=== PATIENT | male | born 1975 | race Caucasian/White ===

== ENCOUNTER 2022-09-07 15:14 | Outpatient (CLI) | payer MEDICAID, SELFPAY ==
--- NOTE | 2022-09-07 15:32 | XRR_ITS ---
PROCEDURE INFORMATION: Exam: XR Lumbosacral Spine Exam date and time: 09/07/2022 3:40 PM Age: 46 years old Clinical indication: Low back pain; Additional info: Vertebrogenic low back pain, comment on presence or absence of spinal instability TECHNIQUE: Imaging protocol: Radiologic exam of the lumbosacral spine. Views: 2 or 3 views. Lateral neutral, flexion and extension views. COMPARISON: No relevant prior studies available. FINDINGS: Bones/joints: No radiographically evident fracture on the lateral neutral view. 0.2 cm retrolisthesis of L2 on L3. 0.1 cm retrolisthesis of L3 on L4. Severe L5-S1 disc space narrowing is seen with vacuum phenomenon, consistent with degenerative disc disease change. Moderate to severe degenerative facet disease changes are seen at the L3-L4 through L5-S1 levels. The lateral flexion and extension views show limited flexion and extension performed by the patient. There is unchanged retrolisthesis of L2 on L3 and L3 on L4. Soft tissues: Paraspinal soft tissues are unremarkable. Notes: If there is further concern or neurological abnormalities on clinical exam, CT or MRI of the lumbar spine may be performed for complete assessment. XR/XR lumbar spine f/e only [id number] IMPRESSION: Degenerative changes of the lumbar spine, as noted above. No definite abnormal motion seen on the limited flexion and extension view radiographs.
== END 2022-09-07 15:15 | disposition home or self-care (01) ==
PROVIDERS: PCP Internal Medicine Medical Oncology; Visit Provider Nurse Practitioner
DX: M51.37 Other intervertebral disc degeneration, lumbosacral region (principal); M47.817 Spondylosis without myelopathy or radiculopathy, lumbosacral region; M48.07 Spinal stenosis, lumbosacral region; M54.51 Vertebrogenic low back pain
CPT/HCPCS: 72120

== ENCOUNTER 2022-12-17 12:49 | Outpatient (CLI) | payer BC, MEDICAID, SELFPAY ==
--- NOTE | 2022-12-17 12:56 | MR_ITS ---
WS: [id number] MRI LUMBAR SPINE NONCONTRAST TECHNIQUE: Sagittal T1, T2 and STIR imaging. Axial T1 and T2 imaging. CLINICAL INFORMATION: VERTEBROGENIC LOW BACK PAIN COMPARISON: None. FINDINGS: Mild lumbar curve. Slight retrolisthesis L2 on L3. L1-L2: Normal. L2-L3: Slight retrolisthesis. Mild annular bulging. Narrowing of the LEFT subarticular recess. Mild f acet arthropathy. Mild LEFT greater than RIGHT foraminal narrowing. L3-L4: Mild annular bulging. Slight effacement of the ventral thecal sac. Mild LEFT foraminal narrowi ng with a small LEFT foraminal protrusion. Mild facet arthropathy. Spinal canal and RIGHT foramen are patent. L4-L5: Mild annular bulging. Tiny annular fissure. Slight impingement on the LEFT subarticular recess and traversing LEFT L5 nerve root. LEFT foraminal protrusion with mild LEFT foraminal narrowing. Con tact of the exiting LEFT L4 nerve root. RIGHT foramen is patent. Moderate facet arthropathy. L5-S1: Mild disc bulging with osteophytic ridging. Mild bilateral foraminal narrowing. Mild facet art hropathy. Visualized pelvic bony structures: Normal. Paravertebral soft tissues: Normal. IMPRESSION: 1. Mild annular bulging L2-3 with slight impingement LEFT subarticular recess and mild LEFT greater than RIGHT foraminal narrowing with small foraminal protrusions. 2. Small LEFT foraminal protrusion with mild LEFT L3-4 foraminal narrowing. 3. LEFT foraminal protrusion L4-5 with an annular fissure and impingement exiting LEFT L4 nerve root . Impingement traversing LEFT L5 nerve root. 4. Mild bilateral L5-S1 foraminal narrowing. 5. Mild to moderate facet arthropathy L3-L5.
== END 2022-12-17 12:50 | disposition home or self-care (01) ==
LOC: RAD 12:51
PROVIDERS: PCP Internal Medicine Medical Oncology; Visit Provider Nurse Practitioner
DX: M54.51 Vertebrogenic low back pain (principal); M51.36 Other intervertebral disc degeneration, lumbar region
CPT/HCPCS: 72148

== ENCOUNTER → 2024-05-16 15:14 | Outpatient (BNVA) | payer BC, MEDICAID, SELFPAY | PROVIDERS: Visit Provider Orthopaedic Surgery | DX: Z01.818 Encounter for other preprocedural examination (principal); M54.9 Dorsalgia, unspecified; M54.2 Cervicalgia; M25.551 Pain in right hip | CPT/HCPCS: 36415; 72050; 72110; 73502; 80053; 81001; 85025 ==

== ENCOUNTER → 2024-06-02 09:45 | Outpatient (BNVA) | payer BC, MEDICAID, SELFPAY | PROVIDERS: Visit Provider Family Medicine | DX: Z01.818 Encounter for other preprocedural examination (principal) | CPT/HCPCS: 93005 ==

== ENCOUNTER 2024-06-28 09:17 | Outpatient (CLI) | payer BC, MEDICAID, SELFPAY ==
--- NOTE | 2024-06-28 09:20 | MR_ITS ---
WS: [id number] MRI CERVICAL SPINE NONCONTRAST HISTORY: Neck Pain COMPARISON: None available. Technique: Multiplanar, multisequence noncontrast imaging of the cervical spine. Normal cervical alignment. Disc spaces are mildly narrowed throughout. Greatest disc base narrowing and desiccation at C5-6. Small hypertrophic osteophytes throughout the cervical spine. Signal within the cervical cord is normal. Visualized posterior fossa is unremarkable. Craniocervical junction, C1 and C2 relationship, odontoid process and soft tissues are normal. C2-C3: No central stenosis. Mild LEFT foraminal stenosis due to osteophyte. C3-C4: Mild annular disc bulging and mild bilateral facet arthritis. Very mild foraminal stenosis. C4-C5: Mild osteophytic ridging with annular disc bulging encroaching upon the ventral thecal sac. Mild central and bilateral foraminal stenosis. Mild bilateral facet arthritis. C5-C6: Mild osteophytic ridging with annular disc bulging and foraminal osteophytes. Mild central and bilateral foraminal stenosis which is moderate. Mild facet arthritis. C6-C7: Mild osteophytic ridging with annular disc bulging. Very mild narrowing of the central canal. Mild RIGHT and moderate LEFT foraminal stenosis. C7-T1: Normal. Paraspinal soft tissue are normal. MR/MR cervical spin wo con* [id number] IMPRESSION: 1. No high-grade central stenosis. 2. C5-6: Moderate bilateral foraminal stenosis due to disc osteophyte disease. Mild central stenosis. 3. C6-7: Moderate LEFT foraminal stenosis with mild RIGHT foraminal stenosis. 4. C2-3: Mild LEFT foraminal stenosis. 5. C3-4: Minimal foraminal stenosis. 6. C4-5: Mild annular disc bulging and facet arthritis resulting in mild centr al and bilateral foraminal stenosis.
== END 2024-06-28 09:18 | disposition home or self-care (01) ==
PROVIDERS: Visit Provider Family Medicine
DX: M48.02 Spinal stenosis, cervical region (principal); M25.78 Osteophyte, vertebrae; M50.321 Other cervical disc degeneration at C4-C5 level; M47.892 Other spondylosis, cervical region; M50.31 Other cervical disc degeneration, high cervical region; M50.322 Other cervical disc degeneration at C5-C6 level; M50.323 Other cervical disc degeneration at C6-C7 level
CPT/HCPCS: 72141

== ENCOUNTER 2024-07-07 14:15 | Outpatient (CLI) | payer BC, MEDICAID, SELFPAY ==
--- NOTE | 2024-07-07 14:30 | MR_ITS ---
WS: [id number] MRI LUMBAR SPINE NONCONTRAST TECHNIQUE: Sagittal T1, T2 and STIR imaging. Axial T1 and T2 imaging. CLINICAL INFORMATION: lumbar pain COMPARISON: 12/17/2022 FINDINGS: Mild lumbar curve. No acute compression. Slight retrolisthesis L2 on L3. Disc space narrowing worse at L5-S1. L1-L2: Mild facet arthropathy. Spinal canal and foramina are patent. L2-L3: Slight retrolisthesis. Disc bulging with significant impingement of the LEFT subarticular recess and traversing LEFT L3 nerve root. Mild facet arthropathy. Small annular fissure. LEFT foraminal protrusion with mild LEFT foraminal narrowing. L3-L4: Mild annular bulging. Impingement on the LEFT subarticular recess and traversing LEFT L4 nerve root. LEFT foraminal protrusion with mild LEFT foraminal narrowing. Small annular fissure at this level. Mild facet arthropathy. L4-L5: Mild annular bulging. Impingement on the LEFT subarticular recess. Small annular fissure eccentric to the LEFT with a LEFT foraminal protrusion. Slight impingement on the exited L4 nerve root. L5-S1: Mild disc bulging with osteophytic ridging. Spinal canal is patent. Mild bilateral bony foraminal narrowing similar to previous. Moderate facet arthropathy. Visualized pelvic bony structures: Normal. Paravertebral soft tissues: Normal. MR/MR lumbar spine wo con* [id number] IMPRESSION: 1. Significant impingement on the LEFT subarticular recess L2-L3 and L3-L4 yadira ears progressed compared to previous 2. LEFT foraminal protrusions L2-3 and L3-4 with small annular tears. Impinge ment on the exiting LEFT L2 and LEFT L3 nerve roots respectively. 3. Disc bulging L4-5 impinges the LEFT subarticular recess and traversing LEFT L5 nerve root. LEFT foraminal protrusion slightly impinges the exiting L4 nerv e root with a small annular tear. This is similar to previous. 4. Mild bilateral bony foraminal narrowing L5-S1.
== END 2024-07-07 14:16 | disposition home or self-care (01) ==
PROVIDERS: PCP Nurse Practitioner Family; Visit Provider Orthopaedic Surgery
DX: M48.062 Spinal stenosis, lumbar region with neurogenic claudication (principal); M79.604 Pain in right leg; M79.605 Pain in left leg; M51.369 Other intervertebral disc degeneration, lumbar region without mention of lumbar back pain or lower extremity pain; M51.26 Other intervertebral disc displacement, lumbar region; R93.7 Abnormal findings on diagnostic imaging of other parts of musculoskeletal system; M43.8X6 Other specified deforming dorsopathies, lumbar region; M99.63 Osseous and subluxation stenosis of intervertebral foramina of lumbar region; M47.896 Other spondylosis, lumbar region; M51.A1 Intervertebral annulus fibrosus defect, small, lumbar region; M51.379 Other intervertebral disc degeneration, lumbosacral region without mention of lumbar back pain or lower extremity pain; M47.897 Other spondylosis, lumbosacral region
CPT/HCPCS: 72148

== ENCOUNTER 2024-08-16 08:28 | Day surgery (SDC) | payer BC, MEDICAID, SELFPAY ==
[2024-08-16] VITALS (9 sets, daily range): BP systolic 95–162; BP diastolic 62–98; PULSE 63–99; RESP 16–18; TEMP 36.2–36.8; O2SAT 95–100; BMI 21.9
[2024-08-16] MEDS: sodium chloride 0.9% 1,000 ML 30 ML IV (09:12)
--- NOTE | 2024-08-16 10:26 | ANES.PREANE2 ---
Pre-Anesthetic Assessment Height/Weight: Height 1.8 m Weight 71.214 kg Temp Pulse Resp BP Pulse Ox O2 Del Method 98.2 F 63 18 134/83 99 Room Air 08/16/24 08:46 08/16/24 08:46 08/16/24 08:46 08/16/24 08:46 08/16/24 08:46 08/16/24 08:54 Preop Diagnosis: Lumbar stenosis neurogenic claudication Operation Date: 08/16/24 10:20 Proposed Procedures p Lumbar Decompression(Not Applicable) - Donnell Ram DO Familial anesthetic complications: Bradycardia in 1994 when given that thing that reverses the anesthesia. probable bradycardia d/t neostigmine reversal Was Beta Brian taken within 24 hours: N/A Was Clonidine taken within 24 hours: N/A Last intake: Intake Last Liquid Date 08/15/24 Last Liquid Time 21:00 Last Solid Date 08/15/24 Last Solid Time 21:00 Social No alcohol and No tobacco Exam alert, oriented x 3, clear to auscultation bilaterally and regular rate & rhythm Airway Mallampati: Class I Dentition: full GI Gastroesophageal Reflux Disease Anesthetic Plan ASA status: 2 Anesthesia: General Risk of > 500 ml blood loss (7ml/kg in children): No Medications/Allergies Home Medications ?Medication ?Instructions ?Recorded ?Confirmed ?Last Taken ?Type acetaminophen 500 mg tablet 500 mg PO Q6H PRN Pain 05/16/24 08/15/24 08/15/24 History (Tylenol Extra Strength) methotrexate sodium 2.5 mg tablet 2.5 mg PO DAILY 05/16/24 08/15/24 08/11/24 History omeprazole 20 mg capsule,delayed 20 mg PO DAILY 05/16/24 08/15/24 08/14/24 History release phentermine 37.5 mg tablet 18.75 mg PO DAILY 05/16/24 08/15/24 08/02/24 History pregabalin 150 mg capsule 150 mg PO BID 05/16/24 08/15/24 08/16/24 History tramadol 50 mg tablet 50 mg PO Q4H PRN Pain 05/16/24 08/15/24 08/16/24 History anastrozole 1 mg tablet 0.5 mg PO .TWICEWEEKLY 08/15/24 08/15/24 08/03/24 History sertraline 50 mg tablet 50 mg PO DAILY 08/15/24 08/15/24 08/15/24 History testosterone cypionate 200 mg/mL 200 mg IM .[id number] 08/15/24 08/15/24 08/03/24 History intramuscular oil Allergies Allergy/AdvReac Type Severity Reaction Status Date / Time pantoprazole Allergy Intermediate hives Verified 07/25/24 11:14 Current Medications Generic Name Dose Route Start Last Admin Trade Name Freq PRN Reason Stop Dose Admin Sodium Chloride 1,000 mls @ 30 mls/hr 08/16/24 08:45 08/16/24 09:12 Sodium Chloride 0.9% IV 08/17/24 08:44 30 mls/hr .Q24H RICHARD Administration PFSH Anesthesia Social History Smoking and tobacco/nicotine status: never used tobacco/nicotine
[2024-08-16] MEDS: midazolam 1 mg/mL INJ 2 mL 2 MG IVP (11:02)
--- NOTE | 2024-08-16 12:06 | W.PM.OPSFHP ---
Same Day Surgery H&P Indication for Procedure/HPI DATE OF PROCEDURE: August 16, 2024 CHIEF COMPLAINT/INDICATIONFOR SURGICAL PROCEDURE: Back and right leg pain PREOP DIAGNOSIS: Lumbar stenosis neurogenic claudication PLANNED PROCEDURE: Operation Date: 08/16/24 10:20 Proposed Procedures p Lumbar Decompression(Not Applicable) - Donnell Ram, DO Medications/Allergies* Home Medications ?Medication ?Instructions ?Recorded ?Confirmed ?Type acetaminophen 500 mg tablet 500 mg PO Q6H PRN Pain 05/16/24 08/15/24 History (Tylenol Extra Strength) methotrexate sodium 2.5 mg tablet 2.5 mg PO DAILY 05/16/24 08/15/24 History omeprazole 20 mg capsule,delayed 20 mg PO DAILY 05/16/24 08/15/24 History release phentermine 37.5 mg tablet 18.75 mg PO DAILY 05/16/24 08/15/24 History pregabalin 150 mg capsule 150 mg PO BID 05/16/24 08/15/24 History tramadol 50 mg tablet 50 mg PO Q4H PRN Pain 05/16/24 08/15/24 History anastrozole 1 mg tablet 0.5 mg PO .TWICEWEEKLY 08/15/24 08/15/24 History sertraline 50 mg tablet 50 mg PO DAILY 08/15/24 08/15/24 History testosterone cypionate 200 mg/mL 200 mg IM .[id number] 08/15/24 08/15/24 History intramuscular oil Allergies/Adverse Reactions Allergy/AdvReac Type Severity Reaction Status Date / Time pantoprazole Allergy Intermediate hives Verified 07/25/24 11:14 Current Medications: Generic Name Dose Route Start Last Admin Trade Name Freq PRN Reason Stop Dose Admin Sodium Chloride 1,000 mls @ 30 mls/hr 08/16/24 08:45 08/16/24 09:12 Sodium Chloride 0.9% IV 08/17/24 08:44 30 mls/hr .Q24H RICHARD Administration Midazolam HCl 2 mg 08/16/24 08:34 08/16/24 11:02 Midazolam 1 Mg/Ml Inj 2 Ml IVP 2 mg Q5M PRN Administration Preop Anxiety Pertinent History/Comorbid Conditions* Social History Smoking and tobacco/nicotine status: never used tobacco/nicotine Pertinent Exam Findings alert, oriented x 3 and procedure specific exam findings Recommendations Risks and benefits of procedure reviewed Surgery/Procedure today Coding Level of Care Code Acute Code for g Fwd
[2024-08-16] MEDS: ceFAZolin 2,000 mg SDV 2000 MG IVP (13:45)
[2024-08-16] MEDS: lidocaine-epi 1% 20 mL INJ INJECTION (14:28)
[2024-08-16] MEDS: fentaNYL 50 mcg/mL INJ 2mL IVP (15:25)
--- NOTE | 2024-08-16 15:34 | P.OP_ITS ---
Operative Report Date of procedure: August 16, 2024 Pre-op diagnosis: Lumbar stenosis with neurogenic claudication Post-op diagnosis: same Procedure done: 1. L4-5 laminectomy with partial facetectomy 2. L5-S1 laminectomy with partial facetectomy Surgeon: Donnell Ram DO Estimated blood loss (mL): 10 Procedure: 1. L4-5 laminectomy with partial facetectomy 2. L5-S1 laminectomy with partial facetectomy Patient is brought to the operative suite. After undergoing anesthesia they are placed in the prone position. All areas of impingement are well padded. Patient is then prepped and draped in the normal sterile fashion. A skin incision is made over the L4/5 level. This is confirmed under c-arm guidance. A series of dilators are passed and the tubular retractor is docked on the L4 lamina. A bovie is used to clear the soft tissue off the lamina and the L 4/5 facet joint. A high speed radha is then used to perform the laminectomy and take down the medial aspect of the L 4/5 facet joint. A kerrison rongeure was then used to take down the remaining lamina and smooth the edge of the laminectomy up to the point where the ligamentum flavum attaches. Attention was then brought to the medial aspect of the facet joint. The remaining medial aspect of the superior and inferior aspect of the facet joint were taken down with the kerrison from the pedicle of L4 to L 5. The facet joint had significant hypertrophy. Attention was then brought to the Ligamentum Flavum. The ligament was taken down from the lamina of L4 to L5 and out medially to the remaining facet joint. The ligament was thick. The dura was then exposed. The dura was in good repair. The L4 nerve was then traced with a curette out the L4/5 foramen and found to be adequately decompressed. The L5 nerve was traced with a curette around the L5 pedicle. The lateral recess was opened with a kerrison helping to further decompress the L5 nerve. Wound is then irrigated copiously with saline and surgiflo is used to stop any bleeding. The tubular retractor is removed A skin incision is made over the L5-S1 level. This is confirmed under c-arm guidance. A series of dilators are passed and the tubular retractor is docked on the L5 lamina. A bovie is used to clear the soft tissue off the lamina and the L 5/S1 facet joint. A high speed radha is then used to perform the laminectomy and take down the medial aspect of the L 5/S1 facet joint. A kerrison rongeure was then used to take down the remaining lamina and smooth the edge of the laminectomy up to the point where the ligamentum flavum attaches. Attention was then brought to the medial aspect of the facet joint. The remaining medial aspect of the superior and inferior aspect of the facet joint were taken down with the kerrison from the pedicle of L5 to S1. The facet joint had significant hypertrophy. Attention was then brought to the Ligamentum Flavum. The ligament was taken down from the lamina of L5 to S1 and out medially to the remaining facet joint. The ligament was thick. The dura was then exposed. The dura was in good repa ir. The L5 nerve was then traced with a curette out the L5/S1 foramen and found to be adequately decompressed. The S1 nerve was traced with a curette around the S1 pedicle. The lateral recess was opened with a kerrison helping to further decompress the S1 nerve. Wound is then irrigated copiously with saline and surgiflo is used to stop any bleeding. The tubular retractor is removed and the wound is closed with vicryl and monocryl suture. Glue is then used to protect the wound. A sterile dressing is then placed. Patient was then placed in the supine position and transferred to the PACU in stable condition.
[2024-08-16] MEDS: HYDROcodone-acetaminophen 5-325 mg Tablet 2 TAB PO (15:57)
--- NOTE | 2024-08-16 16:30 | ANE.PACU2 ---
Inpatient post-anesthesia follow up: Airway intact: Yes Vital signs: Temperature 97.4 F Pulse Rate 72 Respiratory Rate 18 Blood Pressure 126/78 Pulse Oximetry 99 Oxygen Delivery Me thod Room Air Oxygen Flow Rate Fraction of Inspir ed Oxygen Hydration adequate: Yes Nausea and vomiting: No Pain level: 1 Mental status: Baseline
== END 2024-08-16 16:32 | disposition home or self-care (01) ==
PROVIDERS: PCP Nurse Practitioner Family; Visit Provider Orthopaedic Surgery
PROC: (CPT 63005; principal; 2024-08-16 10:10)
DX: M48.062 Spinal stenosis, lumbar region with neurogenic claudication (principal); K21.9 Gastro-esophageal reflux disease without esophagitis; Z79.899 Other long term (current) drug therapy; Z88.8 Allergy status to other drugs, medicaments and biological substances
CPT/HCPCS: 63047; 63048; 72100; 76000; J0690; J1100; J2250; J2371; J2405; J2704; J3010; J3490; J7030; J9999